=== PATIENT | male | born 1980 | race African-American/Black ===

== ENCOUNTER 2021-11-24 15:14 | Emergency (ER) | payer OTHER, BC ==
[~2021-11-24] VITALS: Ht 182.9 cm; Wt 103.3 kg
[2021-11-24 15:24] VITALS: BP 128/83
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
[2021-11-24] MEDS ORDERED: ORPHENADRINE CITRATE 60 MG/2 ML VIAL. IM ONE (16:45)
[2021-11-24] MEDS ORDERED: KETOROLAC 60 MG/2 ML VIAL. IM ONE (16:45)
== END 2021-11-24 16:32 | disposition home or self-care (01) ==
LOC: ER 15:14
DX: M54.2 Cervicalgia (principal); M54.6 Pain in thoracic spine; V49.69XA Unspecified car occupant injured in collision with other motor vehicles in traffic accident, initial encounter; Y93.89 Activity, other specified; Y92.410 Unspecified street and highway as the place of occurrence of the external cause; Y99.8 Other external cause status
CPT/HCPCS: 70450; 72125; 72128; 99284-25